=== PATIENT | male | born 1985 | race Hispanic/Latino ===

== ENCOUNTER 2017-08-27 17:52 | Inpatient (IN) | payer OTHER ==
[~2017-08-27] VITALS: Ht 177.8 cm; Wt 104.3 kg
[2017-08-27] MEDS ORDERED: MORPHINE SULFATE 4 MG/ML SYR IV STA (18:02)
[2017-08-27] MEDS ORDERED: ONDANSETRON HCL INJ 2 MG/ML VIAL IV STA (18:02)
[2017-08-27] MEDS ORDERED: SODIUM CHLORIDE 0.9% 1000ML 1,000 ML IV STA (18:02)
[2017-08-27] MEDS ORDERED: DIATRIZOATE MEGL/DIATRIZOA SOD 30 ML BTL PO ONE (18:14)
--- NOTE | 2017-08-27 18:44 | Diagnostic Imaging Report ---
EXAMINATION: CHEST SINGLE (PORTABLE) INDICATION: Chest pain. Shortness of breath. COMPARISON: None FINDINGS: AP view TUBES and LINES: None. LUNGS: Very hypoinflated lungs with perihilar vascular crowding. Lungs are otherwise unremarkable. There is no evidence of pneumonia or pulmonary edema. PLEURA: No pleural effusion or pneumothorax. HEART AND MEDIASTINUM: The cardiomediastinal silhouette is unremarkable. BONES AND SOFT TISSUES: No acute osseous lesion. Soft tissues are unremarkable. UPPER ABDOMEN: No free air under the diaphragm. IMPRESSION: Very hypoinflated lungs with perihilar vascular crowding. Lungs are otherwise unremarkable. Signed by: Dr. Mariano Chatman M.D. on 08/27/2017 6:40 PM
--- NOTE | 2017-08-27 19:55 | Diagnostic Imaging Report ---
EXAM: US GALLBLADDER DATE: 08/27/2017 6:02 PM INDICATION: , Abdominal pain COMPARISON: None TECHNIQUE: Transverse and longitudinal sheldon scale and color doppler sonographic images of the upper abdomen were obtained. FINDINGS: Overall poor visualization due to bowel gas and administered Gastrografin. LIVER 14.7 cm in the right midclavicular line. Normal echogenicity, normal contour, no masses. GALLBLADDER Positive for gallstone/sludge balls without wall-thickening or pericholecystic fluid. Negative sonographic Cotton's sign. BILE DUCTS No intra nor extra-hepatic biliary dilation. Common bile duct measures 0.9 cm PANCREAS: Poorly visualized. RIGHT KIDNEY: 11.5 cm Echogenicity: Normal Collecting System: No hydronephrosis Stones: None Cyst/Mass: None VESSELS: Aorta: Visualized portions are within normal size limits Inferior Vena Cava: Visualized portions are normal Main Portal Vein: 0.8 cm, normal size with hepatopetal flow. FREE FLUID: None IMPRESSION: Cholelithiasis/sludge without evidence of acute cholecystitis. Signed by: Dr Asuncion Solitario MD on 08/27/2017 7:52 PM
[2017-08-27 20:13] LABS: BASOPHILS # (AUTO) 0.1 (0.0-0.1); BASOPHILS % 0.3 % (0.0-1.0); EOSINOPHILS % 0.1 % (0.0-6.0); HEMATOCRIT 42.8 % (38.2-49.6); HEMOGLOBIN 15.3 g/dL (14.0-18.0); LYMPHOCYTES # (AUTO) 1.7 (1.0-3.2); LYMPHOCYTES % 10.4 % (18.0-39.1); MEAN CORPUSCULAR HEMOGLOBIN 30.8 pg (28-32); MEAN CORPUSCULAR HGB CONC 35.7 g/dL (31-35); MEAN CORPUSCULAR VOLUME 86.1 fL (81-99); MONOCYTES # (AUTO) 1.1 (0.2-0.8); MONOCYTES % 6.9 % (4.4-11.3); NEUTROPHILS # (AUTO) 13.2 (2.1-6.9); NEUTROPHILS % 81.7 % (38.7-80.0); PLATELET COUNT 251 x10e3/uL (140-360); RED BLOOD COUNT 4.97 x10e6/uL (4.3-5.7); RED CELL DISTRIBUTION WIDTH 12.1 % (11.7-14.4)
[2017-08-27 20:35] LABS: ALANINE AMINOTRANSFERASE 149 IU/L (0-55); ALBUMIN 4.3 g/dL (3.5-5.0); ALBUMIN/GLOBULIN RATIO 1.3 (0.8-2.0); ALKALINE PHOSPHATASE 124 IU/L (40-150); AMYLASE 386 U/L (25-125); ANION GAP 13.4 mmol/L (8-16); BLOOD UREA NITROGEN 11 mg/dL (7-26); BUN/CREATININE RATIO 10 (6-25); CALCIUM 9.6 mg/dL (8.4-10.2); CARBON DIOXIDE 26 mmol/L (22-29); CHLORIDE 101 mmol/L (98-107); CREATINE KINASE 113 IU/L (30-200); CREATININE, SERUM 1.07 mg/dL (0.72-1.25); EST GLOMERULAR FILTRATION RATE > 60 ML/MIN (60-); GLUCOSE 92 mg/dL (74-118); POTASSIUM 3.4 mmol/L (3.5-5.1); SODIUM 137 mmol/L (136-145)
[2017-08-27 21:03] LABS: LIPASE 1378 U/L (8-78)
[2017-08-27] MEDS ORDERED: POTASSIUM CHLORIDE 20MEQ/100ML 100 ML IV STA (21:14)
[2017-08-27] MEDS ORDERED: PIPER-TAZ 3.375 GM / NS 50ML IV SCH (21:15)
--- NOTE | 2017-08-27 21:40 | Diagnostic Imaging Report ---
EXAM: CT ABDOMEN/PELVIS W DATE: 08/27/2017 6:02 PM INDICATION: Abdominal pain, \S\r/o sbo- hx gastric sleeve / r/o appy \[id number] \S\2101 COMPARISON: None TECHNIQUE: The abdomen and pelvis were scanned using a multidetector helical scanner. Coronal and sagittal reformations were obtained. Routine protocol performed. IV Contrast: 100 ml Isovue 370 FINDINGS: LOWER THORAX: No consolidations LIVER/BILIARY: No masses. No ductal dilatation. GALLBLADDER: Unremarkable SPLEEN: Unremarkable PANCREAS: Unremarkable ADRENALS: No nodules KIDNEYS: Symmetric perfusion. No enhancing masses. No hydronephrosis. GI TRACT: Postsurgical changes status post gastric sleeve. No bowel obstruction or wall thickening. Normal appendix. VESSELS: Unremarkable PERITONEUM/RETROPERITONEUM: No free air or fluid LYMPH NODES: No lymphadenopathy REPRODUCTIVE ORGANS/BLADDER: Unremarkable SOFT TISSUES: Unremarkable BONES: No suspicious bone lesions. IMPRESSION: No acute abnormality. Signed by: Dr Asuncion Solitario MD on 08/27/2017 9:37 PM
--- OUTSIDE RECORDS SUMMARY | 2017-08-27 22:44 | XMS REPORT ---
[facility] Address Unknown Phone Unavailable Care Team Providers Care Material Cutter Name Role Phone BASIL RILEY Unavailable Unavailable Problems This patient has no known problems. Allergies, Adverse Reactions, Alerts This patient has no known allergies or adverse reactions. Medications This patient has no known medications. Results Test Description Test Time Test Comments Text Results Atomic Results Result Comments CHEST SINGLE (PORTABLE) [place] [address] Patient Name: CE HUERTA MR #: [id number] : 1985 Age/Sex: 32/M Req #: [id number] Adm Physician: Ordered by: NEELA LOPEZ PEDIATRIC ONCOLOGIST Report #: [id number] Location: ER Room/Bed: Procedure: [id number] DX/CHEST SINGLE (PORTABLE) Exam Date: 08/27/17 Exam Time: 1810 REPORT STATUS: Signed EXAMINATION: CHEST SINGLE (PORTABLE) INDICATION: Chest pain. Shortness of breath. COMPARISON: None FINDINGS: AP view TUBES and LINES: None. LUNGS: Very hypoinflated lungs with perihilar vascular crowding. Lungs are otherwise unremarkable. There is no evidence of pneumonia or pulmonary edema. PLEURA: No pleural effusion or pneumothorax. HEART AND MEDIASTINUM: The cardiomediastinal silhouette is unremarkable. BONES AND SOFT TISSUES: No acute osseous lesion. Soft tissues are unremarkable. UPPER ABDOMEN: No free air under the diaphragm. IMPRESSION: Very hypoinflated lungs with perihilar vascular crowding. Lungs are otherwise unremarkable. Signed by: Dr. Cecilia Chatman M.D. on 08/27/2017 6:40 PM Dictated By: CECILIA CHATMAN MD 39 Transcribed By: SALONI on 08/27/171839 COPY TO: NEELA LOPEZ PEDIATRIC ONCOLOGIST US GALLBLADDER [place] [address] Patient Name: CE HUERTA MR #: [id number] : 1985 Age/Sex: 32/M Req #: [id number] Adm Physician: Ordered by: NEELA LOPEZ PEDIATRIC ONCOLOGIST Report #: [id number] Location: ER Room/Bed: Procedure: [id number] US/US GALLBLADDER Exam Date: 08/27/17 Exam Time: 1849 REPORT STATUS: Signed EXAM: US GALLBLADDER DATE: 08/27/2017 6:02 PM INDICATION: , Abdominal pain COMPARISON: None TECHNIQUE: Transverse and longitudinal sheldon scale and color doppler sonographic images of the upper abdomen were obtained. FINDINGS: Overall poor visualization due to bowel gas and administered Gastrografin. LIVER 14.7 cm in the right midclavicular line. Normal echogenicity, normal contour, no masses. GALLBLADDER Positive for gallstone/sludge balls without wall- thickening or pericholecystic fluid. Negative sonographic Cotton's sign. BILE DUCTS No intra nor extra-hepatic biliary dilation. Common bile duct measures 0.9 cm PANCREAS: Poorly visualized. RIGHT KIDNEY: 11.5 cm Echogenicity: Normal Collecting System: No hydronephrosis Stones: None Cyst/Mass: None VESSELS: Aorta: Visualized portions are within normal size limits Inferior Vena Cava: Visualized portions are normal Main Portal Vein: 0.8 cm, normal size with hepatopetal flow. FREE FLUID: None IMPRESSION: Cholelithiasis/sludge without evidence of acute cholecystitis. Signed by: Dr Chica Solitario MD on 08/27/2017 7:52 PM Dictated By: CHICA SOLITARIO MD 51 Transcribed By: SALONI on 08/27/171951 COPY TO: NEELA LOPEZ PEDIATRIC ONCOLOGIST CT ABDOMEN/PELVIS W [place] [address] Patient Name: CE HUERTA MR #: [id number] : 1985 Age/Sex: 32/M Req #: [id number] Adm Physician: Ordered by: NEELA LOPEZ PEDIATRIC ONCOLOGIST Report #: [id number] Location: ER Room/Bed: Procedure: [id number] CT/CT ABDOMEN/PELVIS W Exam Date: 08/27/17 Exam Time: 2101 REPORT STATUS: Signed EXAM: CT ABDOMEN/ PELVIS W DATE: 08/27/2017 6:02 PM INDICATION: Abdominal pain, S r/o sbo- hx gastric sleeve / r/o appy COMPARISON: None TECHNIQUE: The abdomen and pelvis were scanned using a multidetector helical scanner. Coronal and sagittal reformations were obtained. Routine protocol performed. IV Contrast : 100 ml Isovue 370 FINDINGS: LOWER THORAX: No consolidations LIVER/ BILIARY: No masses. No ductal dilatation. GALLBLADDER: Unremarkable SPLEEN: Unremarkable PANCREAS: Unremarkable ADRENALS: No nodules KIDNEYS: Symmetric perfusion. No enhancing masses. No hydronephrosis. GI TRACT: Postsurgical changes status post gastric sleeve. No bowel obstruction or wall thickening. Normal appendix. VESSELS: Unremarkable PERITONEUM /RETROPERITONEUM: No free air or fluid LYMPH NODES: No lymphadenopathy REPRODUCTIVE ORGANS/BLADDER: Unremarkable SOFT TISSUES: Unremarkable BONES: No suspicious bone lesions. IMPRESSION: No acute abnormality. Signed by: Dr Chica Solitario MD on 08/27/2017 9:37 PM Dictated By: CHICA SOLITARIO MD 36 Transcribed By: SALONI on 08/27/172136 COPY TO: NEELA LOPEZ NP
[2017-08-27 23:51] VITALS: BP 152/97
[2017-08-28] VITALS (7 sets, daily range): BP systolic 129–161; BP diastolic 60–97
[2017-08-28 00:42] LABS: BILIRUBIN,URINE NEGATIVE (NEGATIVE); CLARITY,URINE CLEAR (CLEAR); COLOR,URINE YELLOW (YELLOW); KETONES,URINE NEGATIVE (NEGATIVE); LEUKOCYTE ESTERASE ,URINE NEGATIVE (NEGATIVE); NITRITE,URINE NEGATIVE (NEGATIVE); PROTEIN,URINE DIPSTICK NEGATIVE (NEGATIVE); URINE UROBILINOGEN 0.2 mg/dL (0.2 - 1)
[2017-08-28] MEDS ORDERED: POTASSIUM CHLORIDE 20MEQ/100ML 100 ML IV ONE (00:45)
[2017-08-28] MEDS: SODIUM CHLORIDE 0.9% 1000ML 1,000 ML IV SCH ×5 (00:51→17:15)
[2017-08-28 00:58] LABS: BACTERIA,URINE RARE /HPF; EPITHELIAL CELLS,URINE RARE /LPF; RBC,URINE 0-5 /HPF (0-5); WBC,URINE (MAN) 0-5 /HPF (0-5)
[2017-08-28] MEDS ORDERED: SODIUM CHLORIDE 0.9% 50ML 50 ML ONE (04:05)
[2017-08-28] MEDS ORDERED: IOPAMIDOL 370 MG/ML 200 ML INFUS..BTL INJ ONE (04:06)
[2017-08-28 07:53] LABS: BASOPHILS % 0.3 % (0.0-1.0); EOSINOPHILS # (AUTO) 0.1 (0.0-0.4); EOSINOPHILS % 0.5 % (0.0-6.0); HEMATOCRIT 37.5 % (38.2-49.6); HEMOGLOBIN 13.4 g/dL (14.0-18.0); LYMPHOCYTES # (AUTO) 2.2 (1.0-3.2); LYMPHOCYTES % 19.6 % (18.0-39.1); MEAN CORPUSCULAR HEMOGLOBIN 30.7 pg (28-32); MEAN CORPUSCULAR HGB CONC 35.7 g/dL (31-35); MONOCYTES % 8.8 % (4.4-11.3); NEUTROPHILS # (AUTO) 7.9 (2.1-6.9); NEUTROPHILS % 70.4 % (38.7-80.0); PLATELET COUNT 203 x10e3/uL (140-360); RED BLOOD COUNT 4.36 x10e6/uL (4.3-5.7); RED CELL DISTRIBUTION WIDTH 12.1 % (11.7-14.4)
[2017-08-28] MEDS: PIPER-TAZ 3.375 GM / NS 50ML IV SCH ×2 (08:00→16:58)
[2017-08-28 08:25] LABS: ALANINE AMINOTRANSFERASE 201 IU/L (0-55); ALBUMIN 3.4 g/dL (3.5-5.0); ALBUMIN/GLOBULIN RATIO 1.3 (0.8-2.0); ALKALINE PHOSPHATASE 109 IU/L (40-150); AMYLASE 108 U/L (25-125); ANION GAP 8.6 mmol/L (8-16); BLOOD UREA NITROGEN 7 mg/dL (7-26); BUN/CREATININE RATIO 7 (6-25); CALCIUM 8.6 mg/dL (8.4-10.2); CARBON DIOXIDE 26 mmol/L (22-29); CHLORIDE 107 mmol/L (98-107); CREATININE, SERUM 0.96 mg/dL (0.72-1.25); EST GLOMERULAR FILTRATION RATE > 60 ML/MIN (60-); GLUCOSE 90 mg/dL (74-118); LIPASE 85 U/L (8-78); POTASSIUM 3.6 mmol/L (3.5-5.1); SODIUM 138 mmol/L (136-145)
[2017-08-28] MEDS: PANTOPRAZOLE 40 MG 10ML VIAL IV SCH (09:37)
[2017-08-28] MEDS: MORPHINE SULFATE 2 MG/ML SYR IV PRN (17:30)
[2017-08-28] MEDS: ONDANSETRON HCL INJ 2 MG/ML VIAL IV PRN (17:31)
[2017-08-29] VITALS (7 sets, daily range): BP systolic 120–143; BP diastolic 57–75
[2017-08-29] MEDS: PIPER-TAZ 3.375 GM / NS 50ML IV SCH ×3 (00:27→16:02)
[2017-08-29] MEDS: SODIUM CHLORIDE 0.9% 1000ML 1,000 ML IV SCH ×4 (06:09→21:57)
[2017-08-29 08:06] LABS: BASOPHILS % 0.4 % (0.0-1.0); EOSINOPHILS # (AUTO) 0.2 (0.0-0.4); EOSINOPHILS % 1.8 % (0.0-6.0); HEMATOCRIT 39.2 % (38.2-49.6); HEMOGLOBIN 13.9 g/dL (14.0-18.0); LYMPHOCYTES # (AUTO) 2.7 (1.0-3.2); LYMPHOCYTES % 27.3 % (18.0-39.1); MEAN CORPUSCULAR HEMOGLOBIN 30.7 pg (28-32); MEAN CORPUSCULAR HGB CONC 35.5 g/dL (31-35); MEAN CORPUSCULAR VOLUME 86.5 fL (81-99); MONOCYTES # (AUTO) 0.7 (0.2-0.8); MONOCYTES % 6.9 % (4.4-11.3); NEUTROPHILS # (AUTO) 6.1 (2.1-6.9); NEUTROPHILS % 63.2 % (38.7-80.0); PLATELET COUNT 196 x10e3/uL (140-360); RED BLOOD COUNT 4.53 x10e6/uL (4.3-5.7)
[2017-08-29] MEDS: PANTOPRAZOLE 40 MG 10ML VIAL IV SCH (08:13)
[2017-08-29 08:27] LABS: ALANINE AMINOTRANSFERASE 136 IU/L (0-55); ALBUMIN 3.7 g/dL (3.5-5.0); ALBUMIN/GLOBULIN RATIO 1.2 (0.8-2.0); ALKALINE PHOSPHATASE 94 IU/L (40-150); ANION GAP 13.6 mmol/L (8-16); BLOOD UREA NITROGEN 9 mg/dL (7-26); BUN/CREATININE RATIO 10 (6-25); CARBON DIOXIDE 26 mmol/L (22-29); CHLORIDE 105 mmol/L (98-107); CREATININE, SERUM 0.94 mg/dL (0.72-1.25); EST GLOMERULAR FILTRATION RATE > 60 ML/MIN (60-); GLUCOSE 76 mg/dL (74-118); POTASSIUM 4.6 mmol/L (3.5-5.1); SODIUM 140 mmol/L (136-145)
[2017-08-29] MEDS ORDERED: IOPAMIDOL 610MG/1ML 300 MG/ML VIAL IV ONE (09:47)
[2017-08-29] MEDS ORDERED: BUPIVACAINE 0.25%/EPI 30ML SDV INJ ONE (09:47)
[2017-08-29] MEDS ORDERED: ACETAMINOPHEN 1000 MG/100 ML IV PRN (13:15)
[2017-08-29] MEDS ORDERED: MEPERIDINE HCL INJ 50 MG/ML INJ ONE (13:27)
--- NOTE | 2017-08-29 14:25 | Operative Report ---
DATE OF PROCEDURE: August 29, 2017 PREOPERATIVE DIAGNOSIS: Cholecystitis, cholelithiasis and gallstone pancreatitis. Rule out common bile duct stones. POSTOPERATIVE DIAGNOSIS: No common bile duct stones. Cholecystitis, cholelithiasis and gallstone pancreatitis. OPERATION PERFORMED: Laparoscopic cholecystectomy with intraoperative cholangiogram. MOLDING MACHINE TENDER: Dr. Brian Bah ANESTHESIA: General endotracheal. COMPLICATIONS: None. ESTIMATED BLOOD LOSS: Minimal. DESCRIPTION OF PROCEDURE: With the patient lying in bed in the supine position, under good general endotracheal anesthesia, the abdomen was prepped with Betadine solution and draped in the usual manner. A Veress needle was introduced into the umbilicus, and pneumoperitoneum was established without any difficulty. An 11-mm trocar was placed into the umbilicus, and a 10-mm video laparoscope was placed into the intraabdominal cavity. Under direct vision, three 5-mm trocars were placed in the right subcostal region. An extra 5-mm trocar was placed in the left upper abdomen to be able to retract some redundant omentum and transverse colon. Video laparoscopy at this point revealed a gallbladder that contained multiple stones and had some adhesions at the neck. There was some edema of the gallbladder wall. The rest of the abdominal exploration was otherwise within normal limits. We were not able to see the area of the gastric sleeve as it was covered up by the colon. The peritoneum overlying the neck of the gallbladder was then opened, and the cystic duct was identified. The cystic duct was followed to its junction with the common duct. A small opening was made into the cystic duct, and a cholangiocath was introduced. Under fluoroscopic guidance, half-strength dye was introduced into the biliary tree, and this showed free flow of dye into the duodenum and no retained common bile duct filling defects. The cholangiocath was then removed. The cystic duct was then doubly clipped and divided. The cystic artery was similarly doubly clipped and divided. Gallbladder was then slowly and carefully taken off of the liver bed using the cautery scissors, and perfect hemostasis was ascertained. The gallbladder was then placed in a bag and removed through the umbilicus without any difficulty. Video laparoscopy was then again carried out. Liver bed was found to be perfectly dry. All of the excess fluid was aspirated. The pneumoperitoneum was evacuated, and all the trocars were removed under direct vision. The midline fascia at the umbilicus was then closed with a [id number] of #0 Vicryl. All of the layers were infiltrated on the way out with a solution of 1/4 percent Marcaine. Subcutaneous tissue was approximated with 3-0 Vicryl, and the skin was closed with subcuticular 5-0 Vicryl. Benzoin, Steri-Strips and Band-Aids were applied. The sponge, lap and needle count was correct. The patient tolerated the procedure well and returned to the recovery room in stable condition. Job#: [id number]
[2017-08-29] MEDS: MORPHINE SULFATE 2 MG/ML SYR IV PRN ×2 (14:34→19:28)
[2017-08-29] MEDS: ONDANSETRON HCL INJ 2 MG/ML VIAL IV PRN (14:34)
[2017-08-29] MEDS: HYDROCODONE/APAP 7.5MG-325MG 1 EA TAB PO PRN ×2 (16:02→20:48)
[2017-08-29] MEDS ORDERED: ROCURONIUM BROMIDE 10 MG/ML 5ML VIAL ONE (17:25)
[2017-08-29] MEDS ORDERED: PROPOFOL IV EMULSION 10 MG/ML 20 ML VIAL ONE (17:25)
[2017-08-29] MEDS ORDERED: ONDANSETRON HCL INJ 2 MG/ML VIAL ONE (17:25)
[2017-08-29] MEDS ORDERED: SEVOFLURANE INHAL SOLN 250 ML PEN BTL ONE (17:25)
[2017-08-29] MEDS ORDERED: NEOSTIGMINE 5 MG/5ML SYR ONE (17:25)
[2017-08-29] MEDS ORDERED: GLYCOPYRROLATE INJ 1MG/ 5 ML SYR ONE (17:25)
[2017-08-29] MEDS ORDERED: LIDOCAINE HCL 2% LOCAL INJ 5 ML SDV VIAL INJ ONE (17:25)
[2017-08-29] MEDS ORDERED: DEXAMETHASONE SOD PHOS INJ 4 MG/ML VIAL ONE (17:25)
[2017-08-29] MEDS ORDERED: MIDAZOLAM HCL 2 MG/2 ML VIAL ONE (18:33)
[2017-08-29] MEDS ORDERED: FENTANYL CITRATE/PF 100MCG/2 ML INJ ONE (18:33)
[2017-08-30] VITALS: BP 125/60
[2017-08-30] MEDS: PIPER-TAZ 3.375 GM / NS 50ML IV SCH ×2 (01:25→08:11)
[2017-08-30] MEDS: HYDROCODONE/APAP 7.5MG-325MG 1 EA TAB PO PRN ×3 (01:53→12:49)
[2017-08-30 04:00] VITALS: BP 114/59
[2017-08-30 08:11] VITALS: BP 121/56
[2017-08-30] MEDS: PANTOPRAZOLE 40 MG 10ML VIAL IV SCH (08:11)
[2017-08-30 09:16] VITALS: BP 121/56
[2017-08-30] MEDS: SODIUM CHLORIDE 0.9% 1000ML 1,000 ML IV SCH (09:21)
[2017-08-30 12:29] VITALS: BP 133/70
[2017-08-30] MEDS ORDERED: NORCO 7.5-3251 EACH PO (14:44)
[2017-08-30] MEDS ORDERED: LEVAQUIN500 MG PO (14:44)
--- NOTE | 2017-10-31 10:13 | Discharge Summary ---
ADMITTING DIAGNOSES 1. Gallstone pancreatitis. 2. Cholecystitis. 3. Cholelithiasis. DISCHARGE DIAGNOSES 1. Gallstone pancreatitis. 2. Cholecystitis. 3. Cholelithiasis. OPERATION PERFORMED: Laparoscopic cholecystectomy with cholangiograms. COMPLICATIONS: None. HOSPITAL COURSE: This 32-year-old male was admitted to the hospital after presenting to the emergency room complaining of a several day history of upper abdominal pain associated with nausea and vomiting. Physical examination showed him to have some right upper quadrant tenderness, but there was no guarding or rebound present. Ultrasound of the abdomen showed him to have gallstones. Laboratory data showed him to have an elevated white blood cell count and elevated amylase. Patient was placed on IV hydration and antibiotics and made n.p.o. His amylase went back down to normal. He was taken to surgery on August 29, 2017, where he underwent an uneventful laparoscopic cholecystectomy with cholangiograms that showed that there were no residual common duct stones. Postoperatively, the patient did well. Finally, on August 30, 2017, with the patient being afebrile, his vital signs being stable, tolerating a clear liquid diet well, he was discharged to go home to be followed at the office at a later date. GERA CALLE MD Job#: [id number] DC
== END 2017-08-30 15:20 | disposition home or self-care (01) | DRG 418 ==
LOC: ER 17:52 → MED/SURG 22:40
PROVIDERS: ADMIT Surgery; ATTEND Surgery
PROC: BF141ZZ Fluoroscopy of Gallbladder, Bile Ducts and Pancreatic Ducts using Low Osmolar Contrast (ICD-10-PCS; 2017-08-29)
PROC: 0FT44ZZ Resection of Gallbladder, Percutaneous Endoscopic Approach (ICD-10-PCS; principal; 2017-08-29 11:20)
DX: K85.11 Biliary acute pancreatitis with uninfected necrosis (principal); K80.10 Calculus of gallbladder with chronic cholecystitis without obstruction; Z79.84 Long term (current) use of oral hypoglycemic drugs
CPT/HCPCS: 36415; 71045; 74177; 74300; 76705; 80053; 81001; 82150; 82550; 82553; 83690; 84484; 85025; 88304; 93005; 96360; 99284; C1766; J1100; J2001; J2175; J2250; J2270; J2405; J2543; J3480; J7030; Q9967